=== PATIENT | female | born 1940 | race Caucasian/White ===

== ENCOUNTER → 2024-01-11 | Outpatient (CLI) | payer MEDICARE, SELFPAY ==
[2024-01-11 09:17] LABS: Ionized Calcium 5.23 mg/dL (4.36-5.20)
[2024-01-11 09:31] LABS: Absolute Lymphocyte Count 2.47 X10^3/uL (0.83-4.51); Absolute Neutrophil Count 7.3 X10^3/uL (2.0-7.7); Basophil# 0.15 X10^3/uL; Basophil% 1.2 % (0-1); Eosinophils% 7.4 % (0-5); Hematocrit 39.1 % (37-47); Hemoglobin 12.6 g/dL (12.0-15.0); Lymphocyte # 2.47 X10^3/ul (0.83-4.51); Lymphocyte % 20.4 % (19-41); Mean Corp Hgb Conc 32.2 g/dL (32-36); Mean Corpuscular Hgb 31.3 pg (27.0-32.0); Mean Platelet Vol. 12.5 fl (6.2-12.0); Monocyte# 1.24 X10^3/uL; Monocyte% 10.2 % (0-10); NRBC Flagged by Analyzer 0 % (0-5); Neutrophil # 7.33 X10^3/uL (2.7-7.7); Neutrophil % 60.5 % (47-70); Platelet Count 212 K/mm3 (150-450); RBC Distribution Width SD 53.1 fl (35.1-43.9); Red Blood Count 4.03 M/mm3 (4.2-5.4); White Blood Count 12.1 K/mm3 (4.4-11.0)
[2024-01-11 09:48] LABS: PTHIN 42.6 pg/mL (18.4-80.1)
[2024-01-11 10:02] LABS: Albumin, Serum 3.6 g/dL (3.2-5.0); BUN 34 mg/dL (7-18); BUN/Creat Ratio 27.4 RATIO (10-20); Calcium,Total 10.1 mg/dL (8.5-10.1); Chloride 109 mmol/L (98-107); Creatinine, Serum 1.24 mg/dL (0.55-1.02); EST Glomerular Filtration Rate 44 mL/min (>60); Est Glom Filt Rate - Afr Amer 53 mL/min (>60); Glucose 154 mg/dL (74-106); Phosphorus 3.4 mg/dL (2.5-4.9); Potassium 3.9 mmol/L (3.5-5.1); Sodium Level 140 mmol/L (136-145)
[2024-01-12 15:08] LABS: Immunoglobulin A 292 mg/dL (64-422); Immunoglobulin G 1004 mg/dL (586-1602); Immunoglobulin M 57 mg/dL (26-217)
== END | disposition home or self-care (01) ==
PROVIDERS: PCP Internal Medicine; Referring Provider Internal Medicine Nephrology; Visit Provider Internal Medicine Nephrology
DX: N18.32 Chronic kidney disease, stage 3b (principal)
CPT/HCPCS: 36415; 80069; 82330; 82784; 83970; 85025; 86334

== ENCOUNTER 2024-02-28 19:50 | Inpatient (IN) | payer MEDICARE, SELFPAY ==
[2024-02-28] VITALS (17 sets, daily range): BP systolic 158–200; BP diastolic 64–73; PULSE 71–87; RESP 12–37; TEMP 36.6–36.7; O2SAT 89–98; BMI 40.4; BMI 38.7
[2024-02-28 20:19] LABS: Absolute Lymphocyte Count 2.18 X10^3/uL (0.83-4.51); Absolute Neutrophil Count 9.4 X10^3/uL (2.0-7.7); Basophil# 0.12 X10^3/uL; Basophil% 0.9 % (0-1); Eosinophil# 0.58 X10^3/uL; Eosinophils% 4.4 % (0-5); Hematocrit 34.3 % (37-47); Hemoglobin 11.2 g/dL (12.0-15.0); Lymphocyte # 2.18 X10^3/ul (0.83-4.51); Lymphocyte % 16.5 % (19-41); Mean Corp Hgb Conc 32.7 g/dL (32-36); Mean Corpuscular Hgb 31.7 pg (27.0-32.0); Mean Corpuscular Volume 97.2 fL (81-99); Mean Platelet Vol. 12.1 fl (6.2-12.0); Monocyte# 0.94 X10^3/uL; Monocyte% 7.1 % (0-10); NRBC Flagged by Analyzer 0 % (0-5); Neutrophil # 9.35 X10^3/uL (2.7-7.7); Neutrophil % 70.8 % (47-70); Platelet Count 205 K/mm3 (150-450); RBC Distribution Width CV 14.6 % (11.6-14.6); RBC Distribution Width SD 51.8 fl (35.1-43.9); Red Blood Count 3.53 M/mm3 (4.2-5.4); White Blood Count 13.2 K/mm3 (4.4-11.0)
[2024-02-28 20:29] LABS: Allen Test Positive; Base Excess 3 mmol/L (-2 to +2); Blood Gas Specimen Type ART; Comment 14/8 12 60%; Mode Not entered; O2 Delivery Device BiPAP; PO2 133 mmHG (75-100); RR 12; SITE L Radial; SO2 99 % (95-99); Total Carbon Dioxide 28 mmol/L; pCO2 41.3 mmHg (35-45); pH 7.42 (7.35-7.45)
[2024-02-28] MEDS: Nitroglycerin Infusion 250 ML 3 MG CONT INF (20:39)
[2024-02-28] MEDS: Furosemide 20 MG/2 ML VIAL IV (20:39)
[2024-02-28 20:43] LABS: BNP,B-Type NATRIURETIC PEPTIDE 213.9 pg/mL (0-100)
[2024-02-28 20:46] LABS: Anion Gap 8 (5-15); BUN 32 mg/dL (7-18); BUN/Creat Ratio 26.2 RATIO (10-20); Calcium,Total 9.8 mg/dL (8.5-10.1); Chloride 107 mmol/L (98-107); Creatinine, Serum 1.22 mg/dL (0.55-1.02); EST Glomerular Filtration Rate 45 mL/min (>60); Est Glom Filt Rate - Afr Amer 54 mL/min (>60); Estimated Creatinine Clearance 34.52 ml/min; Glucose 165 mg/dL (74-106); Potassium 4.2 mmol/L (3.5-5.1); Sodium Level 139 mmol/L (136-145); Troponin-I HS (w/2H Reflex) 14 pg/mL (3.0-54.0)
[2024-02-28 22:14] LABS: Reflex Troponin-HS? (from REC) Y
[2024-02-28 23:06] LABS: Troponin-I HS 33 pg/mL (3.0-54.0)
[2024-02-28] MEDS: cloNIDine HCl 0.2 MG Tablet PO (23:46)
[2024-02-28] MEDS: Carvedilol 25 MG Tablet PO (23:47)
[2024-02-28] MEDS: Gabapentin 600 MG Tablet PO (23:47)
[2024-02-28] MEDS: Allopurinol 100 MG Tablet PO (23:47)
[2024-02-28 23:55] LABS: Bedside Glucose 144 mg/dL (74-106)
[2024-02-29] VITALS (43 sets, daily range): BP systolic 111–166; BP diastolic 36–88; PULSE 77–88; RESP 16–27; TEMP 36.6; O2SAT 92–97; BMI 38.1
[2024-02-29] MEDS: Insulin Lispro 100 UNIT/ML INSULN.PEN 6 UNIT SC ×4 (00:14→16:35)
[2024-02-29 03:06] LABS: Troponin-I HS 32 pg/mL (3.0-54.0)
[2024-02-29 04:24] LABS: Absolute Lymphocyte Count 1.15 X10^3/uL (0.83-4.51); Absolute Neutrophil Count 8.7 X10^3/uL (2.0-7.7); Basophil# 0.04 X10^3/uL; Basophil% 0.4 % (0-1); Hematocrit 30.7 % (37-47); Lymphocyte # 1.15 X10^3/ul (0.83-4.51); Lymphocyte % 11.6 % (19-41); Mean Corp Hgb Conc 32.6 g/dL (32-36); Mean Corpuscular Hgb 31.5 pg (27.0-32.0); Mean Corpuscular Volume 96.8 fL (81-99); Mean Platelet Vol. 11.8 fl (6.2-12.0); Monocyte# 0.05 X10^3/uL; Monocyte% 0.5 % (0-10); NRBC Flagged by Analyzer 0 % (0-5); Neutrophil # 8.67 X10^3/uL (2.7-7.7); Neutrophil % 87.2 % (47-70); Platelet Count 208 K/mm3 (150-450); RBC Distribution Width CV 14.5 % (11.6-14.6); RBC Distribution Width SD 50.8 fl (35.1-43.9); Red Blood Count 3.17 M/mm3 (4.2-5.4); White Blood Count 9.9 K/mm3 (4.4-11.0)
[2024-02-29 04:55] LABS: Anion Gap 6 (5-15); BUN 34 mg/dL (7-18); BUN/Creat Ratio 26.2 RATIO (10-20); Calcium,Total 9.2 mg/dL (8.5-10.1); Chloride 107 mmol/L (98-107); EST Glomerular Filtration Rate 41 mL/min (>60); Est Glom Filt Rate - Afr Amer 50 mL/min (>60); Glucose 222 mg/dL (74-106); Potassium 4.4 mmol/L (3.5-5.1); Sodium Level 139 mmol/L (136-145)
[2024-02-29] MEDS: Albuterol 2.5 MG/3 ML VIAL.NEB. INHALATION ×4 (07:06→20:17)
[2024-02-29] MEDS: amLODIPine 10 MG Tablet PO (08:07)
[2024-02-29] MEDS: Carvedilol 25 MG Tablet PO ×2 (08:07→16:36)
[2024-02-29] MEDS: cloNIDine HCl 0.2 MG Tablet PO ×2 (08:07→21:00)
[2024-02-29] MEDS: Allopurinol 100 MG Tablet PO ×2 (08:07→16:36)
[2024-02-29] MEDS: Insulin Glargine-YFGN 100 UNIT/ML Pen 48 UNIT SC (08:08)
[2024-02-29] MEDS: Losartan Potassium 100 MG Tablet PO (08:09)
[2024-02-29] MEDS: Enoxaparin 40 MG/0.4 ML Syringe SC (08:10)
[2024-02-29] MEDS: Furosemide 40 MG/4 ML Vial IV (08:14)
[2024-02-29] MEDS: Gabapentin 600 MG Tablet PO ×2 (08:17→20:59)
[2024-02-29] MEDS: 0.9% Saline Lock 10 ML Syringe IV (08:19)
[2024-02-29 08:23] LABS: Bedside Glucose 217 mg/dL (74-106)
[2024-02-29] MEDS: Insulin Lispro 100 UNIT/ML INSULN.PEN SC ×3 (11:25→21:03)
[2024-02-29 11:45] LABS: Bedside Glucose 296 mg/dL (74-106)
[2024-02-29 16:57] LABS: Bedside Glucose 282 mg/dL (74-106)
[2024-02-29] MEDS: Atorvastatin Calcium 40 MG Tablet PO (21:01)
[2024-02-29 22:13] LABS: Bedside Glucose 326 mg/dL (74-106)
[2024-03-01] VITALS (7 sets, daily range): BP systolic 137–157; BP diastolic 55–59; PULSE 78–88; RESP 16–20; TEMP 36.4–36.8; O2SAT 85–94; BMI 38.2
[2024-03-01 06:29] LABS: Absolute Lymphocyte Count 1.68 X10^3/uL (0.83-4.51); Absolute Neutrophil Count 15.4 X10^3/uL (2.0-7.7); Basophil# 0.02 X10^3/uL; Basophil% 0.1 % (0-1); Hematocrit 31.2 % (37-47); Hemoglobin 9.9 g/dL (12.0-15.0); Lymphocyte # 1.68 X10^3/ul (0.83-4.51); Lymphocyte % 9.1 % (19-41); Mean Corp Hgb Conc 31.7 g/dL (32-36); Mean Corpuscular Hgb 31.1 pg (27.0-32.0); Mean Corpuscular Volume 98.1 fL (81-99); Mean Platelet Vol. 12.4 fl (6.2-12.0); Monocyte# 1.19 X10^3/uL; Monocyte% 6.5 % (0-10); NRBC Flagged by Analyzer 0 % (0-5); Neutrophil # 15.38 X10^3/uL (2.7-7.7); Neutrophil % 83.8 % (47-70); Platelet Count 201 K/mm3 (150-450); RBC Distribution Width CV 14.5 % (11.6-14.6); RBC Distribution Width SD 52.5 fl (35.1-43.9); Red Blood Count 3.18 M/mm3 (4.2-5.4); White Blood Count 18.4 K/mm3 (4.4-11.0)
[2024-03-01 07:03] LABS: Bedside Glucose 198 mg/dL (74-106)
[2024-03-01] MEDS: Albuterol 2.5 MG/3 ML VIAL.NEB. INHALATION ×2 (07:23→10:40)
[2024-03-01 07:50] LABS: Anion Gap 8 (5-15); BUN 59 mg/dL (7-18); BUN/Creat Ratio 39.3 RATIO (10-20); Calcium,Total 9.1 mg/dL (8.5-10.1); Chloride 107 mmol/L (98-107); EST Glomerular Filtration Rate 35 mL/min (>60); Est Glom Filt Rate - Afr Amer 42 mL/min (>60); Estimated Creatinine Clearance 28.33 ml/min; Glucose 218 mg/dL (74-106); Potassium 4.7 mmol/L (3.5-5.1); Sodium Level 137 mmol/L (136-145)
[2024-03-01] MEDS: Insulin Lispro 100 UNIT/ML INSULN.PEN SC ×3 (08:15→16:27)
[2024-03-01] MEDS: Insulin Lispro 100 UNIT/ML INSULN.PEN 6 UNIT SC ×3 (08:15→16:28)
[2024-03-01] MEDS: Insulin Glargine-YFGN 100 UNIT/ML Pen 48 UNIT SC (08:16)
[2024-03-01] MEDS: Carvedilol 25 MG Tablet PO ×2 (08:19→16:29)
[2024-03-01] MEDS: Allopurinol 100 MG Tablet PO (08:20)
[2024-03-01] MEDS: Furosemide 40 MG/4 ML Vial IV (09:51)
[2024-03-01] MEDS: cloNIDine HCl 0.2 MG Tablet PO (09:51)
[2024-03-01] MEDS: Losartan Potassium 100 MG Tablet PO (09:51)
[2024-03-01] MEDS: Enoxaparin 40 MG/0.4 ML Syringe SC (09:52)
[2024-03-01] MEDS: amLODIPine 10 MG Tablet PO (09:52)
[2024-03-01] MEDS: Gabapentin 600 MG Tablet PO (09:54)
[2024-03-01] MEDS: 0.9% Saline Lock 10 ML Syringe IV (09:54)
[2024-03-01 12:01] LABS: Bedside Glucose 214 mg/dL (74-106)
[2024-03-01 17:04] LABS: Bedside Glucose 164 mg/dL (74-106)
== END 2024-03-01 17:38 | disposition home health service (06) | DRG 189 ==
LOC: ED 21:43 → ICU 22:00 → PCU 02-29 17:35
PROVIDERS: Admitting Provider Family Medicine; Emergency Provider Emergency Medicine; PCP Internal Medicine; Visit Provider Family Medicine
DX: J96.01 Acute respiratory failure with hypoxia (principal); I50.31 Acute diastolic (congestive) heart failure; I13.0 Hypertensive heart and chronic kidney disease with heart failure and stage 1 through stage 4 chronic kidney disease, or unspecified chronic kidney disease; I27.20 Pulmonary hypertension, unspecified; I16.0 Hypertensive urgency; E11.9 Type 2 diabetes mellitus without complications; Z79.4 Long term (current) use of insulin; E78.00 Pure hypercholesterolemia, unspecified; Z79.82 Long term (current) use of aspirin; Z79.899 Other long term (current) drug therapy; Z87.891 Personal history of nicotine dependence
CPT/HCPCS: 36415; 36600; 71045; 80048; 82803; 82962; 83880; 84484; 85025; 93005; 93306; 94002; 94640; 94762; 97162; 97166; 97802; 99252; 99285; Q9957; A4216; C8929; G0463; J1940

== ENCOUNTER → 2024-03-07 | Outpatient (CLI) | payer MEDICARE, SELFPAY ==
[2024-03-07 12:10] LABS: Absolute Lymphocyte Count 1.82 X10^3/uL (0.83-4.51); Absolute Neutrophil Count 8.1 X10^3/uL (2.0-7.7); Basophil# 0.08 X10^3/uL; Basophil% 0.6 % (0-1); Eosinophil# 0.75 X10^3/uL; Eosinophils% 6.1 % (0-5); Hematocrit 32.7 % (37-47); Hemoglobin 10.3 g/dL (12.0-15.0); Lymphocyte # 1.82 X10^3/ul (0.83-4.51); Lymphocyte % 14.8 % (19-41); Mean Corp Hgb Conc 31.5 g/dL (32-36); Mean Corpuscular Volume 98.5 fL (81-99); Mean Platelet Vol. 12.2 fl (6.2-12.0); Monocyte# 1.49 X10^3/uL; Monocyte% 12.1 % (0-10); NRBC Flagged by Analyzer 0 % (0-5); Neutrophil # 8.14 X10^3/uL (2.7-7.7); Neutrophil % 66.1 % (47-70); Platelet Count 185 K/mm3 (150-450); RBC Distribution Width CV 14.5 % (11.6-14.6); RBC Distribution Width SD 52.6 fl (35.1-43.9); Red Blood Count 3.32 M/mm3 (4.2-5.4); White Blood Count 12.3 K/mm3 (4.4-11.0)
[2024-03-07 13:06] LABS: ALB/GLOB Ratio 0.8 RATIO (0.9-2.4); AST(SGOT) 13 U/L (15-37); Alanine Aminotransfer ALT/SGPT 23 U/L (13-56); Alkaline Phosphatase 56 U/L (45-117); Anion Gap 5 (5-15); BUN 39 mg/dL (7-18); BUN/Creat Ratio 25.7 RATIO (10-20); Calcium,Total 9.5 mg/dL (8.5-10.1); Chloride 108 mmol/L (98-107); Cholesterol 128 mg/dL (200); Creatinine, Serum 1.52 mg/dL (0.55-1.02); EST Glomerular Filtration Rate 35 mL/min (>60); Est Glom Filt Rate - Afr Amer 42 mL/min (>60); Globulin 3.6 g/dL (2.2-4.2); Glucose 199 mg/dL (74-106); High Density Lipoprotein 40 mg/dL; Potassium 4.2 mmol/L (3.5-5.1); Protein, Total 6.6 g/dL (6.4-8.2); Sodium Level 140 mmol/L (136-145); Triglycerides 167 mg/dL; Uric Acid 4.4 mg/dL (2.6-6.0); Very Low Density Lipoprotein 33 mg/dL (5-40)
[2024-03-07 13:17] LABS: Hemoglobin A1c 6.2 % (3.8-5.6)
[2024-03-07 13:24] LABS: Microalbumin,Random Urine 34.3 mg/L (NO RANGE EST.); Microalbumin:Creatinine Ratio 59.8 mg/g CRE (<30 mg/g CRE)
== END | disposition home or self-care (01) ==
LOC: LAB 11:34
PROVIDERS: PCP Internal Medicine; Referring Provider Internal Medicine; Visit Provider Internal Medicine
DX: E11.22 Type 2 diabetes mellitus with diabetic chronic kidney disease (principal); N18.4 Chronic kidney disease, stage 4 (severe); I50.32 Chronic diastolic (congestive) heart failure; E78.2 Mixed hyperlipidemia
CPT/HCPCS: 36415; 80053; 80061; 82043; 82570; 83036; 84550; 85025

== ENCOUNTER → 2024-03-09 | Outpatient (CLI) | payer MEDICARE, SELFPAY | END | disposition home or self-care (01) | LOC: RAD 14:59 | PROVIDERS: PCP Internal Medicine; Referring Provider Internal Medicine; Visit Provider Internal Medicine | DX: I50.32 Chronic diastolic (congestive) heart failure (principal) | CPT/HCPCS: 71046 ==

== ENCOUNTER → 2024-04-10 | Outpatient (CLI) | payer MEDICARE, SELFPAY ==
[2024-04-10 12:59] LABS: Anion Gap 5 (5-15); BUN 28 mg/dL (7-18); Calcium,Total 9.8 mg/dL (8.5-10.1); Chloride 108 mmol/L (98-107); Creatinine, Serum 1.22 mg/dL (0.55-1.02); EST Glomerular Filtration Rate 45 mL/min (>60); Est Glom Filt Rate - Afr Amer 54 mL/min (>60); Glucose 100 mg/dL (74-106); Potassium 3.9 mmol/L (3.5-5.1); Sodium Level 139 mmol/L (136-145)
== END | disposition home or self-care (01) ==
LOC: LABSPEC 12:26
PROVIDERS: PCP Internal Medicine; Referring Provider Internal Medicine Cardiovascular Disease; Visit Provider Internal Medicine Cardiovascular Disease
DX: N18.30 Chronic kidney disease, stage 3 unspecified (principal)
CPT/HCPCS: 80048

== ENCOUNTER → 2024-05-19 | Outpatient (CLI) | payer MEDICARE, SELFPAY ==
--- NOTE | 2024-05-19 13:35 | RAD_ITS ---
PROCEDURE: HIPS B/L MIN 2 VIEWS W/ PELVIS REASON FOR EXAM: Pain following fall. TECHNIQUE: 6 view bilateral hip series to include images of the AP pelvis. COMPARISON: None provided. RAD/Hips B/L min 2 views w/ Pelvis IMPRESSION: Prominent arterial calcification is seen. Prominent degenerative changes are seen of the visualized lumbar spine, particu larly at L4-L5 and L5-S1 levels. At least mild symmetric sacroiliac joint degenerative changes are noted. Minimal left and mild right hip joint degenerative changes are seen. No signif icant joint space narrowing is noted. No evidence of femoral head osteonecrosis. No acute fracture or dislocation is seen. If clinical concern persists, short-term follow-up imaging may be obtained to r ule out a currently occult fracture. Reading Location: [id number]
== END | disposition home or self-care (01) ==
LOC: MTRAD 13:26
PROVIDERS: PCP Internal Medicine; Referring Provider Physician Assistant Surgical; Visit Provider Physician Assistant Surgical
DX: M25.552 Pain in left hip (principal)
CPT/HCPCS: 73521